=== PATIENT | female | born 1995 | race Caucasian/White ===

== ENCOUNTER 2024-03-28 20:40 | Emergency (ER) | payer MEDICAID ==
[~2024-03-28] VITALS: Ht 160 cm; Wt 71.8 kg
[2024-03-28 21:21] LABS: Urine Bacteria None Seen /hpf (None Seen)
[2024-03-28 21:33] LABS: Basophils # (auto) 0 10 ^3/uL (0-0.2); Basophils % (auto) 0.3 % (0.0-2.0); Eosinophils # (auto) 0 10 ^3/uL (0-0.8); Eosinophils % (auto) 0.1 % (0.0-7.0); Hemoglobin 12.7 g/dL (12.2-16.2); Lymphocytes # (auto) 1.8 10 ^3/uL (0.4-5.4); Lymphocytes % (auto) 13.9 % (10.0-50.0); Mean Corpuscular Hgb Conc. 33.4 g/dL (32.0-36.0); Monocytes # (auto) 0.7 10 ^3/uL (0-1.3); Monocytes % (auto) 5.2 % (0.0-12.0); Neutrophils # (auto) 10.6 10 ^3/uL (1.6-8.6); Neutrophils % (auto) 80.5 % (37.0-80.0); Platelet Count (auto) 217 10^3/uL (140-450); Red Blood Cells 4.23 10^6/uL (4.0-5.20); Red Cell Distribution Width 15.7 % (11.8-14.3); White Blood Cell 13.2 10^3/uL (4.4-10.8)
[2024-03-28 21:40] LABS: Urine Blood TRACE /uL (Negative); Urine Clarity Clear (Clear); Urine Color Light-Yellow (Yellow); Urine Mucus FEW (None Seen); Urine Protein, UAD Negative (Negative); Urine Specific Gravity 1.023 (1.001-1.035); Urine Urobilinogen Normal (Negative); Urine WBC 1 /hpf (0 - 5)
[2024-03-28 21:50] LABS: Amphetamine Screen, Urine Neg (NEGATIVE); Barbiturate Scree,Urine Neg (NEGATIVE); Benzodiazephine Screen, Urine Neg (NEGATIVE); Cannabinoid Screen, Urine Pos (NEGATIVE); Cocaine Screen, Urine Neg (NEGATIVE); Opiate Scree,Urine Neg (NEGATIVE); Phencyclidine Screen, Urine Neg (NEGATIVE)
[2024-03-28 21:53] LABS: Alanine Aminotransferase 12 U/L (7-40); Albumin 4.8 g/dL (3.2-4.8); Alkaline Phosphatase 61 U/L (46-116); Anion Gap 7 (5-15); Aspartate Aminotransferase 11 U/L (13-40); BUN/Creatinine Ratio 11.4 (10.0-20.0); Bilirubin, Total 0.6 mg/dL (0.2-1.0); Blood Urea Nitrogen 9 mg/dL (9-23); Calcium 9.8 mg/dL (8.7-10.4); Carbon Dioxide 24 mmol/L (20-31); Chloride 110 mmol/L (98-107); Glucose 80 mg/dL (74-106); Potassium 3.4 mmol/L (3.5-5.1); Sodium 141 mmol/L (136-145); Total Protein 7.2 g/dL (5.7-8.2)
[2024-03-28] MEDS: ACETAMINOPHEN 500 MG TAB PO ONE (22:10)
[2024-03-28] MEDS: SODIUM CHLORIDE 0.9% 1,000 ML IV ONE (22:20)
[2024-03-28 22:36] VITALS: TEMP 99.2
[2024-03-28 22:46] LABS: Rapid Strep A Screen-Throat Negative
[2024-03-28 22:53] LABS: Rapid Influenza A Negative (Negative); Rapid Influenza B Negative (Negative)
[2024-03-28 22:54] LABS: COVID19 ANTIGEN SOFIA FIA NEGATIVE (NEGATIVE)
[2024-03-29] MEDS ORDERED: AUG875T PO (00:37)
[2024-03-29] MEDS ORDERED: ACET-1304 PO (00:37)
[2024-03-29 00:47] VITALS: BP 124/75; PULSE 80; RESP 16; O2SAT 99
[2024-03-29] MEDS: POTASSIUM CHL 20 Meq TABLET PO ONE (00:50)
== END 2024-03-29 01:05 | disposition home or self-care (01) ==
LOC: EDBD 20:40 → ER 20:40
DX: R55 Syncope and collapse (principal); R10.2 Pelvic and perineal pain; R42 Dizziness and giddiness; J02.9 Acute pharyngitis, unspecified; R07.89 Other chest pain; Z20.822 Contact with and (suspected) exposure to COVID-19; Z79.899 Other long term (current) drug therapy
CPT/HCPCS: 36415; 80053; 80307; 81001; 83880; 84484; 84702; 85025; 87070; 87426; 87804; 87880; 93005; 96360; 99284; J7030